=== PATIENT | male | born 1995 | race Caucasian/White ===

== ENCOUNTER 2024-01-14 23:36 | Emergency (ER) | payer BC, OTHER | END 2024-01-15 00:01 | disposition home or self-care (01) | LOC: MADERS 23:36 | DX: T63.441A Toxic effect of venom of bees, accidental (unintentional), initial encounter (principal); G43.909 Migraine, unspecified, not intractable, without status migrainosus; Z87.891 Personal history of nicotine dependence | CPT/HCPCS: 99282 ==